=== PATIENT | female | born 1955 ===

== ENCOUNTER 2017-07-07 07:32 | Outpatient (CLI) | payer OTHER | END 2017-07-07 07:33 | disposition home or self-care (01) | LOC: BICMAMMO 07:32 | PROVIDERS: ATTEND Internal Medicine Gastroenterology | DX: Z12.31 Encounter for screening mammogram for malignant neoplasm of breast (principal) | CPT/HCPCS: 77063; 77067; G0202 ==

== ENCOUNTER 2018-07-24 15:34 | Outpatient (CLI) | payer BC ==
--- NOTE | 2018-07-24 17:12 | BD ---
DEXA DENSITOMETRY: HISTORY: A 63-year-old female for postmenopausal osteoporosis screening. COMPARISON: 06/18/2016 FINDINGS: LUMBAR SPINE BMD (g/cm2) T-SCORE L1 0.710 -2.5 L2 0.774 -2.3 L3 0.742 -3.1 L4 0.797 -2.4 TOTAL 0.758 -2.6 FEMORAL NECK DENSITY 0.579 -2.4 TOTAL 0.741 -1.6 IMPRESSION: 1. The bone mineral density of the lumbar spine indicates osteoporosis. 2. The bone mineral density of the femoral neck indicates osteopenia. 3. Comparison made to prior exam from 06/18/2016. The femoral neck density at that time was recorde d at 0.577. The total lumbar spine density from the prior examination was recorded at 0.781. POS: JESÚS
== END 2018-07-24 15:35 | disposition home or self-care (01) ==
LOC: BICMAMMO 15:34
PROVIDERS: ATTEND Internal Medicine
DX: Z12.31 Encounter for screening mammogram for malignant neoplasm of breast (principal); M81.0 Age-related osteoporosis without current pathological fracture; M85.859 Other specified disorders of bone density and structure, unspecified thigh; R92.1 Mammographic calcification found on diagnostic imaging of breast; Z80.3 Family history of malignant neoplasm of breast
CPT/HCPCS: 77063; 77067; 77080

== ENCOUNTER 2019-07-26 16:04 | Outpatient (CLI) | payer BC ==
--- NOTE | 2019-07-26 17:05 | MMO ---
Bilateral MAMMO Bilat Screen [facility]. CLINICAL HISTORY: Patient is 64 years old and is seen for screening. The patient has the following family history of breast cancer: maternal grandmother. The patient has no personal history of cancer. VIEWS: The views performed were: bilateral craniocaudal with tomosynthesis; bilateral mediolateral oblique with tomosynthesis; and bilateral exaggerated craniocaudal with tomosynthesis. FILMS COMPARED: The present examination has been compared to prior imaging studies performed at [facility] on 06/16/2015, 06/18/2016, 07/07/2017 and 07/24/2018. This study has been interpreted with the assistance of computer-aided detection. MAMMOGRAM FINDINGS: The breasts are heterogeneously dense, which could obscure a lesion on mammography. There are stable benign appearing calcifications seen in both breasts. There are no suspicious masses, suspicious calcifications, or new areas of architectural distortion. IMPRESSION: THERE IS NO MAMMOGRAPHIC EVIDENCE OF MALIGNANCY. A ROUTINE FOLLOW-UP MAMMOGRAM IN 1 YEAR IS RECOMMENDED. THE RESULTS OF THIS EXAM WERE SENT TO THE PATIENT. ACR BI-RADS Category 2 - Benign finding MAMMOGRAPHY NOTE: 1. A negative mammogram report should not delay a biopsy if a dominant of clinically suspicious mass is present. 2. Approximately 10% to 15% of breast cancers are not detected by mammography. 3. Adenosis and dense breasts may obscure an underlying neoplasm. Reported by: GUICHO SHAHID MD Electonically Signed: [id number]
== END 2019-07-26 16:05 | disposition home or self-care (01) ==
LOC: BICMAMMO 16:04
PROVIDERS: ATTEND Internal Medicine
DX: Z12.31 Encounter for screening mammogram for malignant neoplasm of breast (principal); Z80.3 Family history of malignant neoplasm of breast
CPT/HCPCS: 77063; 77067